=== PATIENT | male | born 1975 | race Caucasian/White ===

== ENCOUNTER 2017-07-31 22:05 | Emergency (ER) | payer SELFPAY ==
[2017-07-31 22:14] VITALS: BP 154/98; BMI 43.6
[2017-07-31] MEDS ORDERED: VALIUM INJ IM ONE (22:42)
[2017-07-31] MEDS ORDERED: VALIUM INJ ONE (22:44)
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
== END 2017-07-31 23:14 | disposition home or self-care (01) ==
LOC: ER 22:19
DX: M62.838 Other muscle spasm (principal); M54.6 Pain in thoracic spine
CPT/HCPCS: 96372; 99282; J3360